=== PATIENT | female | born 1995 | race African-American/Black ===

== ENCOUNTER → 2019-11-03 | Emergency (ER) | payer OTHER ==
[~2019-11-03] VITALS: Ht 170.2 cm; Wt 90.7 kg
[~2019-11-03] MED LIST: BENTYL 10 MG CA10 MG PO; ZOFRAN ODT4 MG PO
[2019-11-03 19:07] LABS: ICTOTEST (BILI CONFIRMATORY) Negative (Negative); URINE BILIRUBIN 1+ (Negative); URINE BLOOD NEGATIVE (Negative); URINE CLARITY CLEAR; URINE COLOR YELLOW; URINE GLUCOSE-RANDOM* NEGATIVE (Negative); URINE KETONES 1+ (Negative); URINE LEUKOCYTES-REFLEX TRACE (Negative); URINE NITRITE-REFLEX NEGATIVE (Negative); URINE PROTEIN (DIPSTICK) 1+ (Negative); URINE SPECIFIC GRAVITY 1.025 (1.005-1.035)
[2019-11-03 19:13] LABS: MUCUS 4-6 Moderate strn/LPF (None Seen); SQUAMOUS >10 Many /LPF (0-3)
[2019-11-03 19:14] LABS: BACTERIA-REFLEX >30 Many /HPF (None Seen)
[2019-11-03 19:15] LABS: URINE WBC-REFLEX 6-15 Few /HPF (0-5)
[2019-11-03 19:16] LABS: CASTS None Seen /LPF (None Seen); CRYSTALS None Seen /LPF (None Seen); URINE RBC 0-2 Rare /HPF (0-2)
[2019-11-03 21:49] LABS: EOSINOPHILS 0.1 % (0.0-3.0)
[2019-11-03 21:51] LABS: ABSOLUTE NEUTROPHILS 7.8 thou/uL (1.4-8.2); BASOPHILS 0.7 % (0.0-2.0); HEMATOCRIT 32.7 % (37.0-47.0); HEMOGLOBIN 10.1 gm/dL (12.0-15.0); MCHC 30.8 g/dL (28.0-37.0); MCV 61.9 fL (80.0-100.0); MONOCYTES 6.3 % (1.0-8.0); PLATELET COUNT 244 thou/uL (150-400); POLYS 75.9 % (36.0-66.0); RBC 5.29 mil/uL (4.20-5.00); RDW 23.5 % (10.5-14.5); WBC 10.3 thou/uL (4.0-11.0)
[2019-11-03 22:12] LABS: CREATININE 0.8 mg/dL (0.6-1.0); POTASSIUM 3.2 mmol/L (3.5-5.1); TOTAL BILIRUBIN 1.1 mg/dL (<0.1-1.0)
[2019-11-03 22:26] LABS: CALCIUM 9.2 mg/dL (8.5-10.1)
[2019-11-03 23:43] VITALS: BP 144/87
[2019-11-03 23:43] LABS: ANISOCYTOSIS 3+; HYPOCHROMASIA 3+; MICROCYTES 3+; POLYCHROMASIA 2+
== END ==
LOC: ER 18:45
PROVIDERS: Emergency Medicine; Physician Assistant
DX: K80.50 Calculus of bile duct without cholangitis or cholecystitis without obstruction (principal); R11.2 Nausea with vomiting, unspecified; E86.0 Dehydration; E87.6 Hypokalemia; D64.9 Anemia, unspecified; R74.0 Nonspecific elevation of levels of transaminase and lactic acid dehydrogenase [LDH]